=== PATIENT | male | born 1990 ===

== ENCOUNTER 2017-11-19 16:42 | Emergency (ER) | payer OTHER ==
[~2017-11-19] VITALS: Ht 180.3 cm; Wt 72.7 kg
[2017-11-19 16:54] VITALS: BP 161/87; Ht 180.3 cm; Wt 72.7 kg
== END 2017-11-19 20:30 | disposition left against medical advice (07) ==
LOC: D.ER 16:42
DX: R22.31 Localized swelling, mass and lump, right upper limb (principal); F17.200 Nicotine dependence, unspecified, uncomplicated